=== PATIENT | female | born 1975 | race Caucasian/White ===

== ENCOUNTER → 2016-07-16 17:13 | Outpatient (CLI) | payer BC ==
[2014-05-31 10:09] VITALS: BMI 28.5
[~2016-07-16 17:13] MED LIST: CALTRATE 600 M600 M1 PO; VITAMIN D3400 UNI1 PO
== END | disposition home or self-care (01) ==
LOC: D.MAMMO 11:15
DX: Z12.31 Encounter for screening mammogram for malignant neoplasm of breast (principal)